=== PATIENT | female | born 1935 | race Caucasian/White ===

== ENCOUNTER → 2017-07-30 | Outpatient (CLI) | payer MEDICARE ==
[~2017-07-30] MED LIST: ASPI-555 PO; CALC600T12 PO; CARV25TA PO; LORA0.5P MC; POT25TAB5 PO; PRAV40TA3 PO; UBID100C45 PO; VALS1TAB81 PO
== END | disposition home or self-care (01) ==
LOC: SHCH 16:54
PROVIDERS: ATTEND Internal Medicine Cardiovascular Disease
DX: I25.10 Atherosclerotic heart disease of native coronary artery without angina pectoris (principal)
CPT/HCPCS: 93880

== ENCOUNTER 2017-09-06 11:01 | Emergency (ER) | payer MEDICARE ==
[2017-09-06 12:50] LABS: BASOPHILS % (AUTO) 0.3 % (0.0-5.0); EOSINOPHILS % (AUTO) 0.7 % (0.0-8.0); HEMATOCRIT 37.1 % (36-48); LYMPHOCYTES % (AUTO) 32.9 % (21.0-51.0); MEAN CORPUSCULAR HEMOGLOBIN 29.8 pg (27.0-33.0); MEAN CORPUSCULAR HGB CONC 33.9 g/dL (32.0-36.0); MEAN CORPUSCULAR VOLUME 87.7 fL (79-99); MONOCYTES % (AUTO) 7.5 % (3.0-13.0); NEUTROPHILS % (AUTO) 58.6 % (40.0-77.0); PLATELET COUNT (AUTO) 156 K/uL (130-400); RED BLOOD CELL COUNT(AUTO) 4.22 MIL/uL (4.00-5.50); WHITE BLOOD COUNT (AUTO) 7.2 K/uL (4.8-10.8)
[2017-09-06 12:51] LABS: NUCLEATED RED BLOOD CELLS 0.1 % (0.0-0.19)
[2017-09-06 12:55] LABS: POTASSIUM 4.4 mmol/L (3.5-5.1)
[2017-09-06 12:57] LABS: BILIRUBIN,TOTAL 1.1 mg/dL (0.2-1.0); CREATININE 0.9 mg/dL (0.5-1.5)
[2017-09-06 12:58] LABS: ALBUMIN 3.9 g/dL (3.5-5.0)
[2017-09-06] MEDS ORDERED: AMLODIPINE BESYLATE 5 MG TAB PO ONE (13:42)
[2017-09-06] MEDS ORDERED: CLONIDINE HCL 0.1 MG TABLET ONE (13:42)
== END 2017-09-06 15:30 | disposition home or self-care (01) ==
LOC: EDH 11:01
DX: I10 Essential (primary) hypertension (principal); Z87.891 Personal history of nicotine dependence
CPT/HCPCS: 36415; 80053; 82550; 84484; 85025; 93005